=== PATIENT | female | born 1985 | race Caucasian/White ===

== ENCOUNTER 2018-11-22 13:19 | Inpatient (IN) | payer MEDICAID ==
[2018-11-22] MEDS ORDERED: LIDOCAINE 1% (MPF) 30 ML INJ INJ (14:00)
[2018-11-22] MEDS ORDERED: MISOPROSTOL 200 MCG TAB PR (14:00)
[2018-11-22] MEDS ORDERED: OXYTOCIN 30 UNITS/LR 500 ML IV ×2 (14:00)
[2018-11-22] MEDS ORDERED: METHYLERGONOVINE 0.2 MG INJ IM (14:00)
[2018-11-22] MEDS ORDERED: CARBOPROST 250 MCG INJ IM (14:00)
[2018-11-22] MEDS ORDERED: BUTORPHANOL 2 MG INJ IV ×2 (14:00)
[2018-11-22 14:59] LABS: ADD UMIC YES; UR ASCORBIC ACID 40 mg/dL (NEGATIVE); UR BACTERIA FEW /HPF (NONE SEEN); UR BILIRUBIN (Dip) 1+ mg/dL (NEGATIVE); UR BLOOD (Dip) NEGATIVE (NEGATIVE); UR CALCIUM OXALATE CRYSTAL MANY /HPF (NONE SEEN); UR CLARITY CLOUDY (CLEAR); UR COLOR YELLOW (YELLOW); UR GLUCOSE (Dip) NEGATIVE (NEGATIVE); UR KETONES (Dip) TRACE mg/dL (NEGATIVE); UR LEUKOCYTE ESTERASE (Dip) NEGATIVE Leu/ul (NEGATIVE); UR MUCUS FEW /HPF (NONE SEEN); UR NITRITE (Dip) NEGATIVE (NEGATIVE); UR RBC 14 /HPF (0-5); UR SPECIFIC GRAVITY (Dip) 1.023 (1.003-1.030); UR SQUAMOUS EPITHELIAL CELL FEW /HPF (FEW); UR TOTAL PROTEIN (Dip) NEGATIVE (NEGATIVE); UR UROBILINOGEN (Dip) NEGATIVE (NEGATIVE); UR WBC 5 /HPF (0-5)
[2018-11-22 15:08] LABS: AMPHETAMINE/METHAMPHETAMINE Negative (NEGATIVE); BARBITURATES Negative (NEGATIVE); BENZODIAZEPINES Negative (NEGATIVE); CANNABINOIDS Negative (NEGATIVE); COCAINE Negative (NEGATIVE); OPIATES Negative (NEGATIVE)
[2018-11-22 15:28] LABS: ADD MAN DIFF? NO
[2018-11-22 15:37] LABS: WHITE BLOOD COUNT 9.2 10^3/ul (4.8-10.8)
[2018-11-22 15:37] LABS: BASOPHILS % 0.3 % (0.0-2.0); EOSINOPHILS # 0.1 10^3/ul (0.0-0.5); EOSINOPHILS % 0.8 % (0.0-7.0); HEMATOCRIT 40.6 % (37.0-47.0); HEMOGLOBIN 13.4 g/dl (12.0-16.0); LYMPHOCYTES # 1.6 10^3/ul (0.8-2.9); LYMPHOCYTES % 17.4 % (15.0-51.0); MEAN CORPUSCULAR HEMOGLOBIN 31.8 pg (29.0-33.0); MEAN CORPUSCULAR VOLUME 96.2 fl (82.0-101.0); MEAN PLATELET VOLUME 11.4 fl (7.4-10.4); MONOCYTE # 0.6 10^3/ul (0.3-0.9); NEUTROPHIL # 6.7 10^3/ul (1.6-7.5); NEUTROPHILS % 72.9 % (39.0-77.0); PLATELET COUNT 250 10^3/UL (140-415); RED BLOOD COUNT 4.22 10^6/ul (4.20-5.40); RED CELL DISTRIBUTION WIDTH 14.5 % (11.5-14.5)
[2018-11-22] MEDS: ACETAMINOPHEN 325 MG TAB PO ×2 (15:45→20:54)
[2018-11-22] MEDS: LACTATED RINGER'S 1,000 ML IV (15:46)
[2018-11-22] MEDS: OXYTOCIN 30 UNITS/LR 500 ML IV (15:49)
[2018-11-22 15:52] LABS: URIC ACID 4.8 mg/dl (3.1-7.9)
[2018-11-22 15:53] LABS: ALANINE AMINOTRANSFERASE 16 IU/L (13-69); ALBUMIN 3.8 g/dl (3.3-4.9); ALBUMIN/GLOBULIN RATIO 1.11; ALKALINE PHOSPHATASE 177 IU/L (42-121); ANION GAP 7 (5-13); ASPARTATE AMINO TRANSFERASE 26 IU/L (15-46); BILIRUBIN,INDIRECT 0.3 mg/dl (0-1.1); BILIRUBIN,TOTAL 0.3 mg/dl (0.2-1.3); BLOOD UREA NITROGEN 13 mg/dl (7-20); CALCIUM 9.2 mg/dl (8.4-10.2); CARBON DIOXIDE 26 mmol/L (21-31); CHLORIDE 103 mmol/L (97-110); CREATININE 0.57 mg/dl (0.44-1.00); Estimated GFR > 60 mL/min (>60); GLUCOSE 60 mg/dl (70-220); POTASSIUM 4.8 mmol/L (3.5-5.1); SODIUM 136 mmol/L (135-144); TOTAL PROTEIN 7.2 g/dl (6.1-8.1)
[2018-11-22 16:00] LABS: INR 0.97
[2018-11-22 16:23] LABS: HEPATITIS B SURFACE ANTIGEN NEGATIVE (NEGATIVE)
[2018-11-22 19:59] LABS: RAPID PLASMA REAGIN NONREACTIVE (NR)
[2018-11-22] MEDS ORDERED: LACTATED RINGER'S 1,000 ML IV (22:15)
[2018-11-22] MEDS ORDERED: FENTAnyl 2MCG/ML-ROPIV 0.2% 100 ML (23:09)
[2018-11-22] MEDS ORDERED: ONDANSETRON 4 MG INJ IV (23:30)
[2018-11-22] MEDS ORDERED: DIPHENHYDRAMINE 50 MG INJ IV (23:30)
[2018-11-22] MEDS ORDERED: NALOXONE (0.4 MG/ML) INJ IV (23:30)
[2018-11-23] MEDS: LACTATED RINGER'S 1,000 ML IV ×4 (00:13→22:19)
[2018-11-23] MEDS: ACETAMINOPHEN 325 MG TAB PO (02:24)
[2018-11-23] MEDS: FENTAnyl 2MCG/ML-ROPIV 0.2% 100 ML BAG EPI ×4 (03:51→18:13)
[2018-11-23 07:48] LABS: HEPATITIS B SURFACE ANTIGEN NEGATIVE (NEGATIVE)
[2018-11-23] MEDS ORDERED: OXYTOCIN 30 UNITS/LR 500 ML BAG IV (11:20)
[2018-11-23] MEDS ORDERED: LIDOCAINE 1.5%/EPI MPF (SDV) 30 ML VIAL (23:20)
[2018-11-23] MEDS: AZITHROMYCIN 500MG/NS (PMX) 250 ML IV (23:20)
[2018-11-23] MEDS ORDERED: NA BICARB 50 MEQ/50 ML VIAL (23:21)
[2018-11-23] MEDS ORDERED: FENTAnyl 50 MCG/ML VIAL (23:21)
[2018-11-23] MEDS ORDERED: NALOXONE (0.4 MG/ML) INJ IV (23:30)
[2018-11-23] MEDS ORDERED: ONDANSETRON 4 MG INJ IV (23:30)
[2018-11-23] MEDS ORDERED: DIPHENHYDRAMINE 50 MG INJ IV (23:30)
[2018-11-23] MEDS ORDERED: HYDROmorphONE 0.5 MG/0.5 ML SYG IV (23:30)
[2018-11-23] MEDS ORDERED: ZOLPIDEM 5 MG TAB PO (23:30)
[2018-11-23] MEDS ORDERED: DEXAMETHASONE 4 MG/ML 1 ML INJ (23:41)
[2018-11-23] MEDS ORDERED: ONDANSETRON 4 MG INJ (23:41)
[2018-11-23] MEDS ORDERED: morphine SULFATE/PF (10 MG/10 ML) INJ (23:43)
[2018-11-24] MEDS: KETOROLAC 30 MG INJ IV ×4 (00:43→22:21)
[2018-11-24] MEDS: MINERAL OIL LIGHT 10 ML VIAL TOP (00:51)
[2018-11-24] MEDS: OXYTOCIN 30 UNITS/LR 500 ML IV ×2 (01:31→06:26)
[2018-11-24] MEDS: AZITHROMYCIN 500MG/NS (PMX) 250 ML IV (01:46)
[2018-11-24] MEDS: CEFAZOLIN 2 GM/50 ML (PMX) 50 ML IVPB (01:47)
[2018-11-24] MEDS ORDERED: OXYTOCIN 30 UNITS/LR 500 ML IV (03:00)
[2018-11-24] MEDS ORDERED: MISOPROSTOL 200 MCG TAB PR (03:00)
[2018-11-24] MEDS ORDERED: METHYLERGONOVINE 0.2 MG INJ IM (03:00)
[2018-11-24] MEDS ORDERED: CARBOPROST 250 MCG INJ IM (03:00)
[2018-11-24] MEDS ORDERED: NACL 0.9% 3 ML SYG IV (03:00)
[2018-11-24] MEDS: CEFAZOLIN 1 GM/50 ML (PMX) 50 ML IVPB ×3 (03:33→18:21)
[2018-11-24 08:01] LABS: ADD MAN DIFF? NO
[2018-11-24 08:06] LABS: BASOPHIL # 0.1 10^3/ul (0.0-0.1); BASOPHILS % 0.2 % (0.0-2.0); HEMATOCRIT 36.8 % (37.0-47.0); LYMPHOCYTES # 0.8 10^3/ul (0.8-2.9); LYMPHOCYTES % 3.7 % (15.0-51.0); MEAN CORPUSCULAR HEMOGLOBIN 31.2 pg (29.0-33.0); MEAN CORPUSCULAR HGB CONC 32.6 g/dl (32.0-37.0); MEAN CORPUSCULAR VOLUME 95.6 fl (82.0-101.0); MEAN PLATELET VOLUME 11.1 fl (7.4-10.4); MONOCYTE # 0.8 10^3/ul (0.3-0.9); MONOCYTES % 3.8 % (0.0-11.0); NEUTROPHIL # 19.9 10^3/ul (1.6-7.5); NEUTROPHILS % 90.8 % (39.0-77.0); PLATELET COUNT 199 10^3/UL (140-415); RED BLOOD COUNT 3.85 10^6/ul (4.20-5.40); RED CELL DISTRIBUTION WIDTH 14.1 % (11.5-14.5)
[2018-11-24 08:06] LABS: WHITE BLOOD COUNT 21.9 10^3/ul (4.8-10.8)
[2018-11-24] MEDS: HYDROmorphONE 0.5 MG/0.5 ML SYG IV (20:20)
[2018-11-24] MEDS: SENNA/DOCUSATE NA (8.6MG/50MG) TAB PO (22:21)
[2018-11-25] MEDS: OXYCODONE/ACETAMINOPHEN (5/325) TAB PO ×5 (03:48→21:47)
[2018-11-25] MEDS: IBUPROFEN 600 MG TAB PO ×4 (06:27→17:48)
[2018-11-25] MEDS: SENNA/DOCUSATE NA (8.6MG/50MG) TAB PO ×2 (08:49→21:46)
[2018-11-25] MEDS ORDERED: BISACODYL 10 MG SUPP PR (15:30)
[2018-11-25] MEDS: DIBUCAINE 1% 30 GM OINT TOP (16:15)
[2018-11-25] MEDS ORDERED: OXYCODONE/ACETAMINOPHEN (5/325) TAB PO (23:58)
[2018-11-26] MEDS: IBUPROFEN 600 MG TAB PO ×3 (00:12→11:37)
[2018-11-26] MEDS: OXYCODONE/ACETAMINOPHEN (5/325) TAB PO ×3 (03:29→13:30)
[2018-11-26] MEDS: LANOLIN HPA 1 PKT TOP (08:57)
[2018-11-26] MEDS: SENNA/DOCUSATE NA (8.6MG/50MG) TAB PO (08:57)
[2018-11-26] MEDS: DIPHTH/TET/ACEL PERTUSS (ADULT) 0.5 ML VIAL IM* (13:32)
== END 2018-11-26 16:39 | disposition home or self-care (01) | DRG 788 ==
LOC: OBT 13:19 → L-D 11-24 00:25 → PP1 11-26 09:42 → L-D 13:19 → PP1 11-24 02:57 → OBT 13:22 → L-D 13:23
PROC: 10D00Z1 Extraction of Products of Conception, Low, Open Approach (ICD-10-PCS; principal; 2018-11-23 22:30)
DX: O62.1 Secondary uterine inertia (principal); Z3A.39 39 weeks gestation of pregnancy; Z37.0 Single live birth
CPT/HCPCS: 62322; 76815; 76818; 80053; 80307; 81001; 84560; 85025; 85384; 85610; 85730; 86592; 86850; 86900; 86901; 87340; 90715; 99464